=== PATIENT | female | born 1990 | race African-American/Black ===

== ENCOUNTER 2018-11-30 10:02 | Emergency (ER) | payer MEDICAID ==
[2018-11-30] MEDS ORDERED: LIDOCAINE 2% VISCOUS SOLN 20 ML UDCUP PO ONE (10:36)
[2018-11-30] MEDS ORDERED: PENICILLIN V POTASSIUM 500 MG TABLET PO ONE (10:36)
--- NOTE | 2018-11-30 10:39 | ER Document Report ---
ED Oral Problem - General Chief Complaint: Toothache Stated Complaint: JAW/TOOTH PAIN Time Seen by Provider: 11/30/18 10:22 Mode of Arrival: Ambulatory Information source: Patient Notes: 38-year-old female presented to ED for complaint of dental pain to the right lower jaw. She states it is not one tooth is the whole area between tooth #32 and 28. There is no definite abscess there is no 1 area that is more painful. She states the whole area hurts. She states is been hurting for about 3-4 months but this is much worse for the last 2 days. She states she spoke to have a dental appointment on Monday for them to correct this problem. Patient is alert and oriented respirations regular and unlabored speaking in full sentences walks with a even steady gait. TRAVEL OUTSIDE OF THE [place] IN LAST 30 DAYS: No - HPI Patient complains to provider of: Toothache Onset: Other - 3 months worse for the last 2 days Onset: Gradual Quality of pain: Achy, Sharp, Throbbing Severity: Severe Associated symptoms: Jaw pain, Toothache Worsened by: Nothing Relieved by: Nothing Similar symptoms previously: Yes Recently seen / treated by doctor/dentist: No - Related Data Allergies/Adverse Reactions: No Known Allergies Allergy (Verified 11/30/18 10:12) Past Medical History - General Information source: Patient - Social History Smoking Status: Never Smoker Cigarette use (# per day): No Chew tobacco use (# tins/day): No Smoking Education Provided: No Frequency of alcohol use: None Drug Abuse: None Lives with: Family Family History: Reviewed & Not Pertinent Patient has suicidal ideation: No Patient has homicidal ideation: No - Past Medical History Cardiac Medical History: Reports: None Pulmonary Medical History: Reports: None EENT Medical History: Reports: None Neurological Medical History: Reports: None Endocrine Medical History: Reports: None Renal/ Medical History: Reports: None Malignancy Medical History: Reports: None GI Medical History: Reports: None Musculoskeletal Medical History: Reports None Skin Medical History: Reports None Psychiatric Medical History: Reports: None Traumatic Medical History: Reports: None Infectious Medical History: Reports: None Surgical Hx: Negative Past Surgical History: Reports: None - Immunizations Immunizations up to date: Yes Hx Diphtheria, Pertussis, Tetanus Vaccination: Yes Review of Systems - Review of Systems Constitutional: No symptoms reported EENT: No symptoms reported, Mouth pain, Dental problem Cardiovascular: No symptoms reported Respiratory: No symptoms reported Gastrointestinal: No symptoms reported Genitourinary: No symptoms reported Female Genitourinary: No symptoms reported Musculoskeletal: No symptoms reported Skin: No symptoms reported Hematologic/Lymphatic: No symptoms reported Neurological/Psychological: No symptoms reported -: Yes All other systems reviewed and negative Physical Exam - Vital signs Vitals: Temp Pulse Resp BP Pulse Ox 97.4 F 104 H 20 145/91 H 100 11/30/18 10:11 11/30/18 10:11 11/30/18 10:11 11/30/18 10:11 11/30/18 10:11 Interpretation: Normal - General General appearance: Appears well, Alert - HEENT Head: Normocephalic, Atraumatic Eyes: Normal Pupils: PERRL Ears: Normal External canal: Normal Tympanic membrane: Normal Sinus: Normal Nasal: Normal Mouth/Lips: Caries Mucous membranes: Normal Teeth diagram: 1 - Complains of pain to this whole area. There is no abscesses no definite infection there are multiple cavities. There is no facial swelling Pharynx: Normal Neck: No: Anterior cervical chain - Respiratory Respiratory status: No respiratory distress Chest status: Nontender Breath sounds: Normal Chest palpation: Normal - Cardiovascular Rhythm: Regular Heart sounds: Normal auscultation Murmur: No - Abdominal Inspection: Normal Distension: No distension Bowel sounds: Normal Tenderness: Nontender Organomegaly: No organomegaly - Back Back: Normal, Nontender - Extremities General upper extremity: Normal inspection, Nontender, Normal color, Normal ROM, Normal temperature General lower extremity: Normal inspection, Nontender, Normal color, Normal ROM, Normal temperature, Normal weight bearing. No: Elva's sign - Neurological Neuro grossly intact: Yes Cognition: Normal Orientation: AAOx4 Neris Coma Scale Eye Opening: Spontaneous Milo Coma Scale Verbal: Oriented Milo Coma Scale Motor: Obeys Commands Neris Coma Scale Total: 15 Speech: Normal Motor strength normal: LUE, RUE, LLE, RLE Sensory: Normal - Psychological Associated symptoms: Normal affect, Normal mood - Skin Skin Temperature: Warm Skin Moisture: Dry Skin Color: Normal Course - Re-evaluation Re-evalutation: 11/30/18 10:54 Patient was treated with penicillin VK she was offered Tylenol and Motrin but states she just taken both of them 5 months ago. She was offered a narcotic pain medicine if she had a special client bus driver. She states she was not go to wait around for special client bus driver to come back that she just sent them away. I explained to patient that I could not give her a narcotic without a special client bus driver in the room. She states that she was just take her antibiotics and go home. Patient was given a penicillin VK in the emergency room and discharged home with a prescription for penicillin VK. Presentation is most consistent with likely an infected tooth. Airway is patent. Vitals within normal limits. Patient is able swallow without any difficulty. There is no significant facial swelling. No evidence of Vince angina, apical abscess, or airway obstruction. Patient will be started on antibiotics. I've instructed to follow-up with dentistry as earliest ability for definitive management. At this time will discharge with return precautions and follow-up recommendations. Verbal discharge instructions given a the bedside and opportunity for questions given. Medication warnings reviewed. Patient is in agreement with this plan and has verbalized understanding of return precautions and the need for primary care follow-up in the next 24-72 hours. - Vital Signs Vital signs: Temp Pulse Resp BP Pulse Ox 97.4 F 104 H 20 145/91 H 100 11/30/18 10:11 11/30/18 10:11 11/30/18 10:11 11/30/18 10:11 11/30/18 10:11 Discharge - Discharge Clinical Impression: Pain due to dental caries Condition: Stable Disposition: HOME, SELF-CARE Additional Instructions: TOOTHACHE: Your pain is due to dental decay. The tooth must be repaired in order for you to feel better. You will, therefore, be referred to a dentist. We do not have dentists on the staff at [facility]. Severe swelling or drainage around a tooth usually means a dental abscess. This also requires evaluation and treatment by the dentist, but antibiotics may be prescribed while awaiting dental treatment. You should be rechecked immediately if you develop major swelling of the face, increasing pain, a lump in the jaw or gums, headache, difficulty swallowing, or fever. Offered 1 narcotic while in the emergency room for your dental pain as you stated you are just taken Tylenol 5 minutes ago and ibuprofen 5 minutes ago. You stated you did not want to wait long enough to get a narcotic. PENICILLIN V K: You have been given a prescription for Penicillin VK. Your physician has determined that this is the best antibiotic for your condition. Pen VK can be taken with meals, however more of the antibiotic gets into the bloodstream if it's taken on an empty stomach. Penicillin usually has no side effects. However, allergy to penicillins is common. If you have had an allergic reaction to any drug of the penicillin family, you should never take any other penicillin. Notify your doctor at once if you develop hives, itching, swelling, faintness, or shortness of breath. I have given you a syringe of viscous lidocaine to apply a small amount to your hand and then apply it to the dental area that his pain. You can do this every 3-4 hours. Salt and soda solution gargles may also help your pain. Salt and soda solution 1 quart of water 1 tablespoon of salt 1 teaspoon of baking soda Mixed 3 ingredients together and boil for 1 minute Placed in a covered quart jar Use 1/2 ounce of cold solution to gargle 3 times a day FOLLOW-UP CARE: You have been referred for follow-up care to the dentists listed below. Call the dentists office for an appointment as you were instructed or within the next two days. If you experience worsening or a significant change in your symptoms, notify the physician immediately or return to the Emergency Department at any time for re-evaluation. [facility] [address], [place] Monday mornings, by appointment [facility] [address] [place] [address] [facility] [address] [facility] [address] [facility]. [facility] [address] [facility]. [email or web address] [place] [address] [place] [address] Monday- 8:00am to 5:00 pm Will see patients from other [facility]. Charges based on income and family size and accepts Medicare, Medicaid, and Insurances Will pull molars [facility], [facility]. [id number] Hours of Operation 8:00 am - 4:30 pm weekdays The following dental offices accept Medicaid: [facility] [address]. [address] [place] Dr. [address] Dr. Babb Zia Sotelo, [place], and [place] oral surgery Dr. Pringle ([place]) Dr. Valle ([place]) [facility] Drs. Sanabria ([place]) Dr. Vasquez ([place]) [facility] Dr. Johnson ([place]) Drs. [place] and ([place]) Medicaid Care Line Prescriptions: Penicillin V Potassium [Penicillin Vk 500 mg Tablet] 500 mg PO BID #20 tablet Forms: Elevated Blood Pressure, Smoking Cessation Education, Return to Work
[2018-11-30 10:54] VITALS: BP 132/68
== END 2018-11-30 10:54 | disposition home or self-care (01) ==
LOC: ER 10:02
DX: K02.9 Dental caries, unspecified (principal); K08.89 Other specified disorders of teeth and supporting structures
CPT/HCPCS: 99283; J3490 ×2